=== PATIENT | female | born 1940 | race Hispanic/Latino ===

== ENCOUNTER 2017-05-17 13:55 | Emergency (ER) | payer MEDICARE ==
--- NOTE | 2017-05-17 17:15 | Emergency Department Report ---
- General Chief complaint: Weakness Stated complaint: WEAKNESS/NAUSEA Time Seen by Provider: 05/17/17 17:02 Source: EMS Mode of arrival: Stretcher Limitations: No Limitations - History of Present Illness Initial comments: 76-year-old female easily stopped her clonazepam now shes is weak and dizzy, chronically on clonazepam and recently stopped it. She did deny chest pain headache numbness tingling or weakness the family is aware that she is a little bit altered was some tremors stating that she feels weak all over. She denies headache she denies stiff neck she denies fever she denies back pain no tearing pain no abdominal complaints -: days(s), unknown Associated Symptoms: myalgias. denies: chest pain, confusion, dark stools, diaphoresis, dysuria, easy bruising, fever/chills, headaches, loss of appetite, nausea/vomiting, rash, shortness of breath, syncope - Related Data Previous Rx's Medication Instructions Recorded Last Taken Type Cephalexin [Keflex] 500 mg PO Q6HR #28 capsule 05/17/17 Unknown Rx clonazePAM [Klonopin] 0.5 mg PO BID PRN #14 tablet 05/17/17 Unknown Rx Allergies Allergy/AdvReac Type Severity Reaction Status Date / Time No Known Allergies Allergy Unverified 05/17/17 17:01 ED Review of Systems ROS: Stated complaint: WEAKNESS/NAUSEA Other details as noted in HPI Comment: All other systems reviewed and negative ENT: denies: dental pain, hearing loss, epistaxis Respiratory: denies: shortness of breath, SOB with exertion, SOB at rest, stridor Cardiovascular: denies: chest pain, palpitations, dyspnea on exertion, orthopnea , edema, syncope Gastrointestinal: denies: diarrhea, constipation, hematemesis, melena, hematochezia Neurological: denies: numbness, paresthesias, confusion, abnormal gait, vertigo ED Past Medical Hx - Medications Home Medications: Home Medications Medication Instructions Recorded Confirmed Last Taken Type Cephalexin [Keflex] 500 mg PO Q6HR #28 capsule 05/17/17 Unknown Rx clonazePAM [Klonopin] 0.5 mg PO BID PRN #14 tablet 05/17/17 Unknown Rx ED Physical Exam - General Limitations: No Limitations General appearance: alert, anxious - Head Head exam: Present: atraumatic, normocephalic - Eye Eye exam: Present: PERRL, EOMI - ENT ENT exam: Present: normal orophraynx, mucous membranes dry, mucous membranes moist - Neck Neck exam: Present: normal inspection. Absent: tenderness, meningismus, lymphadenopathy, thyromegaly - Respiratory Respiratory exam: Present: normal lung sounds bilaterally. Absent: respiratory distress, wheezes, rales, rhonchi, stridor, chest wall tenderness, accessory muscle use - Cardiovascular Cardiovascular Exam: Present: regular rate, normal rhythm, normal heart sounds - GI/Abdominal GI/Abdominal exam: Present: soft. Absent: distended, tenderness, guarding, rebound, rigid, mass, bruit, pulsatile mass - Extremities Exam Extremities exam: Present: normal inspection, normal capillary refill. Absent: pedal edema, joint swelling, calf tenderness - Back Exam Back exam: Present: normal inspection. Absent: CVA tenderness (L), muscle spasm , paraspinal tenderness, vertebral tenderness - Neurological Exam Neurological exam: Present: alert, oriented X3, CN II-XII intact. Absent: motor sensory deficit - Psychiatric Psychiatric exam: Present: normal affect, anxious. Absent: flat affect, homicidal ideation, suicidal ideation - Skin Skin exam: Absent: cyanosis, diaphoretic, erythema, urticaria, vesicles, petechiae ED Course Vital Signs 05/17/17 05/17/17 05/17/17 14:57 17:45 19:31 Pulse Rate 102 H Respiratory 18 20 Rate Blood Pressure 171/99 164/99 O2 Sat by Pulse 96 96 Oximetry - Reevaluation(s) Reevaluation #1: 05/17/17 20:39 Laboratory studies were obtained, ct head , cxr and ekg, pt given benzo given ssx w/d ED Medical Decision Making - Lab Data Result diagrams: 05/17/17 17:06 05/17/17 17:06 - EKG Data EKG shows normal: sinus rhythm - EKG Data When compared to previous EKG there are: previous EKG unavailable Interpretation: nonspecific ST-T wave geronimo, other (poor R-wave progression qS V1 and V2) - Radiology Data Radiology results: report reviewed - Medical Decision Making Patient with a complaints and signs and symptoms. History does support recent stoppage of benzodiazepines. Symptoms are suggestive of benzodiazepine withdrawal. EKG showed no acute ischemic changes. Troponin is negative. Head CT was unremarkable. Change versus infiltrate. She had a normal WBC with a left shift she does have evidence of UTI. The renal ultrasound is unremarkable she did have a sodium of 129 troponin was negative glucose is 119 workup essentially is unrevealing for acute emergent process that would require further testing or admission at this time. Symptoms are likely related to UTI as well as benzodiazepine withdrawal. Patient is stable for outpatient follow- up they will need to taper her benzodiazepines she was started antibiotics here and Dr. avila's return if worse Critical care attestation.: If time is entered above; I have spent that time in minutes in the direct care of this critically ill patient, excluding procedure time. ED Disposition Clinical Impression: Benzodiazepine withdrawal, UTI (urinary tract infection) Disposition: TO HOME OR SELFCARE Is pt being admited?: No Condition: Stable Instructions: Benzodiazepine Abuse (ED), Urinary Tract Infection in Women (ED) Additional Instructions: Return if new alarming symptoms see her doctor in 2 days. He'll need to taper. Benzodiazepine clonazepam. Prescriptions: Cephalexin [Keflex] 500 mg PO Q6HR #28 capsule clonazePAM [Klonopin] 0.5 mg PO BID PRN #14 tablet PRN Reason: Anxiety Referrals: PRIMARY CARE, [Primary Care Provider] - 3-5 Days Time of Disposition: 20:46
[2017-05-17] MEDS ORDERED: ATIVAN IV ONE (17:17)
[2017-05-17 17:31] LABS: Basophils % (Auto) 0.3 % (0.0-1.8); Eosinophils % (Auto) 0.2 % (0.0-4.3); Hematocrit 32.7 % (30.3-42.9); Hemoglobin 11.3 gm/dl (10.1-14.3); Lymphocytes # (Auto) 0.8 K/mm3 (1.2-5.4); Lymphocytes % (Auto) 7.7 % (13.4-35.0); Mean Corpuscular HGB Conc 35 % (30-34); Mean Corpuscular Hemoglobin 31 pg (28-32); Mean Corpuscular Volume 90 fl (79-97); Monocytes # (Auto) 0.5 K/mm3 (0.0-0.8); Monocytes % (Auto) 4.5 % (0.0-7.3); Platelet Count 456 K/mm3 (140-440); Red Blood Count 3.66 M/mm3 (3.65-5.03); Red Cell Distribution Width 14.7 % (13.2-15.2)
[2017-05-17 17:49] LABS: Alanine Aminotransferase 8 units/L (7-56); Albumin 2.8 g/dL (3.9-5); BUN/Creatinine Ratio 12; Blood Urea Nitrogen 7 mg/dL (7-17); Calcium 7.8 mg/dL (8.4-10.2); Hemolysis Index 6
[2017-05-17 18:01] VITALS: BP 164/99
[2017-05-17 18:12] LABS: Amorphous Crystals,Urine Few; Bilirubin,Urine NEG (Negative); Blood,Urine NEG (Negative); Color,Urine Yellow (Yellow); Mucus,Urine 1+ /HPF; Nitrite,Urine NEG (Negative); Protein,Urine <15 mg/dL mg/dL (Negative)
--- NOTE | 2017-05-17 18:13 | XRay Report ---
FINAL REPORT EXAM: XR CHEST 1V AP HISTORY: Weakness TECHNIQUE: Portable upright frontal chest x-ray Comparison: None FINDINGS: Right hemidiaphragm is elevated. There is ill-defined opacity in the right lung base partially silhouetting the right hemidiaphragm. Lungs are emphysematous. There are patchy increased markings in both lung bases. There is basal consolidation. The trachea projects to the right of the vertebral bodies, mildly rotated. No definite pneumothorax. Density projects at the cardiac base with a lucency suggestive of hiatal hernia Heart size is normal. IMPRESSION: Bilateral basal consolidation, right greater than left, in association with probable hiatal hernia. Basilar infiltrates may also be present. Emphysema. No priors available for comparison. There are mild bilateral diffuse reticular increased interstitial markings which may be due to chronic fibrosis or interstitial infiltrate such as edema. Recommend follow-up two view chest centered more over the heart.
[2017-05-17 18:19] LABS: Amphetamine Screen,Urine PRESUMPTIVE NEGATIVE; Benzodiazepines Screen,Urine PRESUMPTIVE NEGATIVE; Cannabinoid Screen,Urine PRESUMPTIVE NEGATIVE; Cocaine Screen,Urine PRESUMPTIVE NEGATIVE; Methadone Screen,Urine PRESUMPTIVE NEGATIVE; Opiate Screen,Urine PRESUMPTIVE NEGATIVE
--- NOTE | 2017-05-17 19:44 | Cat Scan Report ---
FINAL REPORT PROCEDURE: CT HEAD/BRAIN WO CON TECHNIQUE: Computerized tomography of the head was performed without contrast material. HISTORY: weak COMPARISON: No prior studies are available for comparison. FINDINGS: Skull and scalp: Normal. Paranasal sinuses: Slight sphenoids thickening Ventricles and subarachnoid spaces: Normal. Cerebrum: No evidence of hemorrhage, acute infarction or mass . Cerebellum and brainstem: No evidence of hemorrhage, acute infarction or mass. Vasculature: Normal. Comments: Moderate diffuse atrophy with moderate low attenuated microischemic change and central lacunar infarct disease. No definite evidence of acute ischemic change. If symptoms and or concern persists recommend MRI.. IMPRESSION: No acute intracranial pathology. No hyperdense MCA sign. Consider followup MRI if warranted
== END 2017-05-17 21:35 | disposition home or self-care (01) ==
LOC: ED 13:55
DX: N39.0 Urinary tract infection, site not specified (principal); F15.93 Other stimulant use, unspecified with withdrawal
CPT/HCPCS: 36415; 70450; 71045; 80053; 80307; 81001; 84484; 85025; 93005; 93010; 96374; 99285; J2060